=== PATIENT | female | born 1985 | race Caucasian/White ===

== ENCOUNTER 2022-06-03 21:48 | Inpatient (IN) ==
[2022-06-03] MEDS ORDERED: CARBOPROST TROMETHAMINE 250 MCG/ML AMP IM PRN (21:55)
[2022-06-03] MEDS ORDERED: OXYTOCIN/LR 20 UNIT/1,000 ML BAG IV ONE ×2 (21:55→23:53)
[2022-06-03] MEDS ORDERED: TRANEXAMIC ACID 1,000 MG in SODIUM CHLORIDE 0.9% 100 ML IV PRN (21:55)
[2022-06-03] MEDS ORDERED: METHYLERGONOVINE 0.2 MG/1 ML AMP IM PRN (21:55)
[2022-06-03] MEDS ORDERED: ONDANSETRON 4 MG/2 ML VIAL IV PRN ×2 (21:55→23:53)
[2022-06-03] MEDS ORDERED: BUTORPHANOL 1 MG/ML VIAL IV PRN (21:55)
[2022-06-03] MEDS ORDERED: miSOPROStoL 200 MCG TABLET RECTAL PRN (21:55)
[2022-06-03] MEDS ORDERED: LACTATED RINGERS 1,000 ML IV SCH (22:00)
[2022-06-03] MEDS ORDERED: ceFAZolin 2,000 MG/50 ML DUPLEX IV ONE (22:11)
[2022-06-03 22:25] LABS: Basophils % 0.3 % (0.0-0.8); Eosinophils # 0.1 10*3/uL (0.0-0.87); Eosinophils % 0.4 % (0.00-10.9); Hematocrit 31.4 VOL% (35.7-47.0); Hemoglobin 9.9 GM/DL (12.0-16.0); Immature Granulocytes % 0.9 %; Immature Granulocytes Absolute 0.12 #; Lymphocytes # 1.9 10*3/uL (1.4-4.0); Lymphocytes % 14.1 % (21.3-54.2); Mean Corpuscular HGB Conc 31.5 GM/DL (32-36); Mean Corpuscular Volume 84.9 FL (87-102); Mean Platelet Volume 10.2 FL (9.6-12.0); Monocytes # 0.6 10*3/uL (0.11-0.8); Monocytes % 4.3 % (1.7-12.7); Platelet Count 238 T/CUMM (130-400); Red Cell Distribution Width 16.7 % (9.3-17.3); White Blood Count 13.7 T/CUMM (4-12)
[2022-06-03 22:26] LABS: Cord Venous Blood HCO3 23.9 MMOL/L; Cord Venous Blood PCO2 38.9 MMHG; Cord Venous Blood PO2 28.6
[2022-06-03 22:51] LABS: Uric Acid 4.4 MG/DL (2.6-6.0)
[2022-06-03 22:52] LABS: Albumin 2.3 G/DL (3.4-5.0); Bilirubin,Total 0.5 MG/DL (0.20-1.00); Calcium 8.6 MG/DL (8.5-10.1); Osmolality,Calculated 271.7 MOS/KG (273-304); Potassium 3.3 MMOL/L (3.5-5.1); Total Protein 6.5 G/DL (6.4-8.2)
[2022-06-03] MEDS ORDERED: POTASSIUM CHLORIDE 20 MEQ TABLET PO ONE (23:06)
[2022-06-03] MEDS ORDERED: oxyCODONE/ACETAMINOPHEN 5-325 MG TABLET PO ONE (23:09)
[2022-06-03 23:14] LABS: Bilirubin,Urine Negative (Negative); Blood, Urine Negative (Negative); Glucose,Urine (UA) Negative (Negative); Ketones,Urine Trace mg/dL (Negative); Mucus,Urine Occasional /LPF (Occasional); Nitrite,Urine Negative (Negative); Protein,Urine Negative (Negative); Squamous Epithelial Cell,Urine Occasional /HPF (0-10); Urine Appearance Clear (Clear); Urine Color Yellow (Yellow)
[2022-06-03 23:16] LABS: Rubella Antibody IgG Result Reactive (NonReactive)
[2022-06-03 23:30] LABS: Barbiturates Screen,Urine Negative (Negative); Benzodiazepines Screen,Urine Negative (Negative); Cannabinoid Screen,Urine Positive (Negative); Opiate Screen,Urine Negative (Negative); Phencyclidine Screen,Urine Negative (Negative)
[2022-06-03 23:34] LABS: HIV Antigen/Antibody Result Nonreactive (Nonreactive); Hepatitis B Surface Ag Quant < 0.10 Index; Hepatitis B Surface Ag Result Non-Reactive (NonReactive)
[2022-06-03] MEDS ORDERED: RHO(D) IMMUNE GLOBULIN 300 MCG SYRINGE IM ONE (23:53)
[2022-06-03] MEDS ORDERED: miSOPROStoL 200 MCG TABLET VAG PRN (23:53)
[2022-06-03] MEDS ORDERED: MEASLES/MUMPS/RUBELLA VACCINE 0.5 ML VIAL SUBCUT ONE (23:53)
[2022-06-03] MEDS ORDERED: HYDROCORTISONE 2.5% RECTAL CREAM 30 GM TUBE TOP PRN (23:53)
[2022-06-03] MEDS ORDERED: ACETAMINOPHEN 325 MG TABLET PO PRN (23:53)
[2022-06-03] MEDS ORDERED: BENZOCAINE 20%/MENTHOL 0.5% SPRAY 56 GM CAN TOP PRN (23:53)
[2022-06-03] MEDS ORDERED: DIPH/TET/ACEL PERT BOOSTER VACCINE 0.5 ML VIAL IM ONE (23:53)
[2022-06-03] MEDS ORDERED: BISACODYL 10 MG SUPP RECTAL PRN (23:53)
[2022-06-03] MEDS ORDERED: oxyCODONE/ACETAMINOPHEN 5-325 MG TABLET PO PRN ×2 (23:53)
[2022-06-03] MEDS ORDERED: WITCH HAZEL PADS 100/JAR TOP PRN (23:53)
[2022-06-03] MEDS ORDERED: IBUPROFEN 800 MG TABLET PO PRN (23:53)
[2022-06-03] MEDS ORDERED: LANOLIN 50% CREAM 0.3 OZ TUBE TOP PRN (23:53)
[2022-06-04] MEDS: DOCUSATE SODIUM 100 MG CAPSULE PO SCH ×2 (09:12→21:00)
[2022-06-04] MEDS: FERROUS SULFATE 325 MG TABLET PO SCH ×2 (09:12→21:00)
[2022-06-04 16:54] VITALS: BP 139/85
[2022-06-04 18:15] LABS: Basophils % 0.3 % (0.0-0.8); Eosinophils % 0.1 % (0.00-10.9); Hematocrit 27.3 VOL% (35.7-47.0); Hemoglobin 8.7 GM/DL (12.0-16.0); Immature Granulocytes % 1.1 %; Immature Granulocytes Absolute 0.17 #; Lymphocytes # 2.2 10*3/uL (1.4-4.0); Lymphocytes % 14.8 % (21.3-54.2); Mean Corpuscular HGB Conc 31.9 GM/DL (32-36); Mean Platelet Volume 10.3 FL (9.6-12.0); Monocytes # 0.7 10*3/uL (0.11-0.8); Monocytes % 4.9 % (1.7-12.7); NRBC # 0.02 10*3/uL; Neutrophils % 78.8 % (38.7-73.9); Platelet Count 274 T/CUMM (130-400); Red Blood Count 3.21 MC/CUMM (3.8-5.5); Red Cell Distribution Width 17.2 % (9.3-17.3); White Blood Count 14.8 T/CUMM (4-12)
[2022-06-05] MEDS: DOCUSATE SODIUM 100 MG CAPSULE PO SCH (08:28)
[2022-06-05] MEDS: FERROUS SULFATE 325 MG TABLET PO SCH (08:34)
== END 2022-06-05 11:30 | disposition home or self-care (01) | DRG 560 ==
LOC: N.LD 21:48 → N.OB 06-04 01:30
PROVIDERS: ADMIT Obstetrics & Gynecology; ATTEND Obstetrics & Gynecology